=== PATIENT | male | born 1960 | race Hispanic/Latino ===

== ENCOUNTER → 2025-05-18 | Outpatient (CLI) | payer OTHER ==
--- NOTE | 2025-05-19 10:59 | HMCIMG ---
EXAM: CT Cardiac calcium scoring. CLINICAL HISTORY: CAD screening. TECHNIQUE: Thin collimated axial CT cardiac images were obtained. A CT scan is done according to ALARA (As Low As Reasonably Achievable). CONTRAST: None. COMPARISON: None provided. FINDINGS: Calcium Score: VESSEL Number of lesions Volume mm3 Equi. Mass/mg Calcium score LM 2 59.0 --.-- 87.2 LAD 7 225.6 --.-- 290.8 LCX 2 3.9 --.-- 6.1 RCA 12 178.8 --.-- 225.1 Total 23 467.3 --.-- 609.2 IMPRESSION: The calcium score is 609.2. This places the patient above 75th percentile in comparison to a group of patients asymptomatic for coronary artery disease with the same age and gender. This means that >75% of males aged 65-69 have a calcium score that is lower than the patient's. /[place]
== END | disposition home or self-care (01) ==
LOC: RAH 13:14
PROVIDERS: ATTEND Internal Medicine Critical Care Medicine
DX: Z13.6 Encounter for screening for cardiovascular disorders (principal); I25.10 Atherosclerotic heart disease of native coronary artery without angina pectoris
CPT/HCPCS: 75571